=== PATIENT | male | born 1990 | race Two or more races ===

== ENCOUNTER 2024-03-19 22:24 | Emergency (ER) | payer MEDICAID, OTHER ==
[~2024-03-19] VITALS: Ht 177.8 cm; Wt 100.0 kg
[2024-03-20] MEDS: SILVER SULFADIAZINE 1 % TOPICAL CREAM 50GM TOP ONE (03:17)
[2024-03-20] MEDS: KETOROLAC TROMETH 60MG/2ML VIAL IM ONE (03:18)
[2024-03-20 03:30] VITALS: BP 111/72; PULSE 75; RESP 12; TEMP 98.7; O2SAT 98
== END 2024-03-20 04:35 | disposition home or self-care (01) ==
LOC: EDBD 22:24 → ER 22:24
DX: T23.272A Burn of second degree of left wrist, initial encounter (principal); T23.271A Burn of second degree of right wrist, initial encounter; T24.222A Burn of second degree of left knee, initial encounter; T24.221A Burn of second degree of right knee, initial encounter; T31.0 Burns involving less than 10% of body surface; X08.8XXA Exposure to other specified smoke, fire and flames, initial encounter; Y93.89 Activity, other specified; Y92.89 Other specified places as the place of occurrence of the external cause; Y99.8 Other external cause status
CPT/HCPCS: 16020; 96372; 99283; J1885